=== PATIENT | female | born 1990 | race Caucasian/White ===

== ENCOUNTER 2017-07-17 17:38 | Emergency (ER) | payer OTHER ==
[~2017-07-17] VITALS: Ht 162.6 cm; Wt 138.3 kg
[~2017-07-17 17:38] MED LIST: AMOXICILLIN500 M3 PO; APRI 28 DAY TA1 EACH PO; BACTRIM DS TAB1 EACH PO
[2017-07-17 18:06] VITALS: BP 127/81
--- NOTE | 2017-07-17 18:19 | ED GENERAL ADULT ---
History of Present Illness General Chief Complaint: Suture Removal/Wound Recheck Stated Complaint: WOND CHECK F/U (TAIL BONE) Source: patient Exam Limitations: no limitations Vital Signs & Intake/Output Vital Signs & Intake/Output Vital Signs Date Time Temp Pulse Resp B/P B/P Pulse O2 O2 Flow FiO2 Mean Ox Delivery Rate 07/17 1806 98.1 74 16 127/81 98 Room Air Allergies Coded Allergies: cefprozil (From CEFZIL) (Intermediate, HIVES 07/14/17) Reconcile Medications Amoxicillin 500 MG TABLET 1 TAB PO TID ABSCESS Desogestrel-Ethinyl Estradiol (Apri 28 Day Tablet) 0.15 MG-0.03 MG TABLET 1 TAB PO DAILY CONTROL (Reported) Sulfamethoxazole/Trimethoprim (Bactrim Ds Tablet) 800 MG-160 MG TABLET 1 TAB PO BID ABSCESS Triage Note: RECEIVED 26 YO FEMALE INSTRUCTED TO RETURN TO THE ED FOR RE-EVALUATION AND FOLLOW UP OF ABSCESS TO COCCYX AREA. I+D PERFORMED SUNDAY NIT. Triage Nurses Notes Reviewed? yes Onset: Abrupt Duration: day(s): Timing: recent history : No Patient currently breastfeeds: No HPI: 07/17/17 26-year-old female presents to the emergency department for wound check. She says she is status post I&D of a buttock abscess approximately 48 hours ago. She denies fever or other complaints. She reports less pain. She denies diabetes. Past History Travel History Traveled to [place] past 21 day No Medical History Any Pertinent Medical History? see below for history Neurological: NONE EENT: NONE Cardiovascular: NONE Respiratory: NONE Gastrointestinal: NONE Hepatic: NONE Renal: NONE Musculoskeletal: NONE Psychiatric: NONE Endocrine: NONE Blood Disorders: NONE Cancer(s): NONE [employer] RESEARCH/Reproductive: NONE Surgical History Surgical History: non-contributory Psychosocial History What is your primary language Macanese Tobacco Use: Never used Family History Hx Contributory? No Review of Systems Review of Systems Constitutional: Denies: fever. EENTM: Reports: no symptoms. Respiratory: Reports: no symptoms. Cardiovascular: Reports: no symptoms. GI: Denies: abdominal pain. Genitourinary: Reports: no symptoms. Musculoskeletal: Reports: no symptoms. Skin: Reports: see HPI. Neurological/Psychological: Reports: no symptoms. Hematologic/Endocrine: Reports: no symptoms. Immunologic/Allergic: Reports: no symptoms. Physical Exam Physical Exam General Appearance: well developed/nourished, alert, awake, anxious, mild distress Head: normal appearance Eyes: Bilateral: normal appearance, PERRL, EOMI. Ears, Nose, Throat: normal ENT inspection Neck: normal inspection Respiratory: no respiratory distress Cardiovascular: regular rate/rhythm Gastrointestinal: non-tender Back: normal inspection Extremities: normal inspection Neurologic/Psych: no motor/sensory deficits, awake, alert, oriented x 3 Skin: healing abscess Core Measures ACS in differential dx? No CVA/TIA Diagnosis: No Sepsis Present: No Sepsis Focused Exam Completed? No Progress Differential Diagnoses I considered the following diagnoses in my evaluation of the patient: [Abscess, perirectal abscess, pilonidal abscess, cellulitis] Plan of Care: follow up with her PCP on sunday Initial ED EKG: none Departure Departure Disposition: HOME OR SELF CARE Condition: Stable Clinical Impression Primary Impression: Pilonidal abscess Referrals: Josette Gaytan DO (PCP/Family) Departure Forms: Customer Survey General Discharge Information Comments 07/17/17 The patient has a clean pilonidal abscess. It is resolving. There is no active drainage. There is no surrounding erythema. It is at the superior aspect of the central gluteal fold. Culture reveals alpha strep. She is on amoxicillin and Bactrim. She was instructed to follow-up with her doctor on Sunday or return to the emergency department if worse. She will continue warm soaks daily. Critical Care Note Critical Care Note Critical Care Time: non-applicable
== END 2017-07-17 18:45 ==
LOC: ERH 17:38
DX: Z48.00 Encounter for change or removal of nonsurgical wound dressing (principal)